=== PATIENT | male | born 2000 | race Caucasian/White ===

== ENCOUNTER 2023-07-15 12:50 | Emergency (ER) | payer OTHER ==
[~2023-07-15] VITALS: Ht 177.8 cm; Wt 86.0 kg
[2023-07-15 12:56] VITALS: O2SAT 100
[2023-07-15] MEDS: SODIUM CHLORIDE 0.9% 1,000 ML IV ONE ×2 (13:39→21:05)
[2023-07-15 13:46] LABS: BASOPHILS % 0.5 % (0.0-2.0); EOSINOPHILS % 0.2 % (0.0-5.0); HEMATOCRIT. 46.8 % (42.0-52.0); HEMOGLOBIN. 15.8 g/dL (14.0-18.0); LYMPHOCYTES % 10.6 % (20.0-50.0); MEAN CORPUSCULAR HEMOGLOBIN 32.7 pg (28.0-32.0); MEAN CORPUSCULAR HGB CONC 33.6 g/dL (31.0-37.0); MEAN CORPUSCULAR VOLUME 97.1 fL (80.0-94.0); MEAN PLATELET VOLUME 9.3 fl (7.4-10.4); MONOCYTES % 6.2 % (2.0-8.0); NEUTROPHILS % 82.5 % (40.0-76.0); PLATELET 256 x1000/uL (130-400); RED BLOOD CELL COUNT 4.82 mill/uL (4.7-6.1); RED CELL DISTRIBUTION WIDTH 13.4 % (11.6-14.6)
[2023-07-15] MEDS: LORAZEPAM 2MG/ML INJ IV STA (13:48)
[2023-07-15 14:21] LABS: ACETAMINOPHEN < 2 ug/mL (10-30); ALANINE AMINOTRANSFERASE 21 IU/L (10-49); ALBUMIN 5.4 g/dL (3.2-4.8); ASPARTATE AMINOTRANSFERASE 37 IU/L (<34); BILIRUBIN TOTAL 1.8 mg/dL (0.1-1.0); CALCIUM 9.5 mg/dL (8.7-10.4); CARBON DIOXIDE 18 mEq/L (21-32); CHLORIDE 105 mEq/L (98-107); CREATINE KINASE 251 IU/L (46-171); CREATININE 0.9 mg/dL (0.6-1.3); GLUCOSE 87 mg/dL (70-105); SODIUM 135 mEq/L (136-145); TROPONIN I HIGH SENSITIVITY 12 ng/L (3.0-53); UREA NITROGEN BLOOD 14 mg/dL (9-23)
[2023-07-15 14:31] LABS: ETHANOL BLOOD < 10 mg/dL (<10)
[2023-07-15 15:09] LABS: CLARITY URINE CLEAR (CLEAR); COLOR URINE YELLOW (YELLOW); GLUCOSE URINE NEGATIVE (NEGATIVE); KETONES URINE NEGATIVE (NEGATIVE); LEUKOCYTE ESTERASE URINE NEGATIVE (NEGATIVE); NITRITE URINE NEGATIVE (NEGATIVE); OCCULT BLOOD URINE TRACE (NEGATIVE); PROTEIN URINE NEGATIVE (NEGATIVE); SPECIFIC GRAVITY URINE 1.007 (1.005-1.030); UROBILINOGEN URINE 0.2 E.U./dL (0.2-1.0)
[2023-07-15 15:28] LABS: *AMPHETAMINES SCREEN URINE NEGATIVE (NEGATIVE); *BARBITURATES SCREEN URINE NEGATIVE (NEGATIVE); *BENZODIAZEPINES SCREEN URINE NEGATIVE (NEGATIVE); *COCAINE SCREEN URINE PRESUMPTIVE POSITIVE (NEGATIVE); CANNABINOID URINE SCREEN PRESUMPTIVE POSITIVE (NEGATIVE); ECSTASY MDMA SCREEN URINE NEGATIVE (NEGATIVE); METHADONE URINE SCREEN Neg (NEGATIVE); OPIATES URINE SCREEN NEGATIVE (NEGATIVE); PHENCYCLIDINE URINE SCREEN NEGATIVE (NEGATIVE)
[2023-07-15 15:42] VITALS: TEMP 98.3
[2023-07-15 16:05] LABS: TROPONIN I HIGH SENSITIVITY 10 ng/L (3.0-53)
[2023-07-15 16:12] LABS: BACTERIA URINE TRACE; RBC URINE 0-2 /hpf (0-2); SQUAMOUS EPITHELIAL CELL URINE RARE /lpf (RARE/1+); WBC URINE NONE SEEN /hpf (0-2)
[2023-07-15 18:40] LABS: TROPONIN I HIGH SENSITIVITY 10 ng/L (3.0-53)
[2023-07-15 22:30] VITALS: BP 105/50; PULSE 58; RESP 17
== END 2023-07-16 00:42 | disposition home or self-care (01) ==
LOC: ER 12:50
DX: R41.0 Disorientation, unspecified (principal); T40.5X5A Adverse effect of cocaine, initial encounter; Y92.89 Other specified places as the place of occurrence of the external cause
CPT/HCPCS: 80053; 80305; 81003; 80307; 80329; 80320; 82550; 83690; 85025; 84484; 36415; 93005; 96361; 96374; 99285; J2060; J7030; G0480